=== PATIENT | female | born 1980 | race African-American/Black ===

== ENCOUNTER 2016-05-13 20:57 | Emergency (ER) | payer OTHER ==
[~2016-05-13] VITALS: Ht 154.9 cm; Wt 94.3 kg
--- NOTE | 2016-05-13 21:58 | PHYS DOC ---
Past Medical History Past Medical History: Other Past Surgical History: , Tubal ligation Alcohol Use: None Drug Use: None Adult General Chief Complaint Chief Complaint: LOWER EXT PAIN HPI HPI This 35-year-old female who states she's had some left-sided lower extremity pain in left lower quadrant pain as well as well as some left sided weakness that she status all been there for the last 2 days. Tonight she denies any significant history of health problems. 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 She does states she was recently traveling over the last several days. She denies any chest pain or shortness of breath. Review of Systems Review of Systems Constitutional: Denies fever or chills [] Eyes: Denies change in visual acuity, redness, or eye pain [] HENT: Denies nasal congestion or sore throat [] Respiratory: Denies cough or shortness of breath [] Cardiovascular: No additional information not addressed in HPI [] GI: Has abdominal pain, nausea, vomiting, bloody stools or diarrhea [] : Denies dysuria or hematuria [] Musculoskeletal: Denies back pain, has joint pain [] Integument: Denies rash or skin lesions [] Neurologic: Denies headache, focal weakness or sensory changes [] Endocrine: Denies polyuria or polydipsia [] Allergies Allergies Allergies Coded Allergies Type Severity Reaction Last Updated Verified Penicillins Allergy Unknown 05/13/16 Yes Physical Exam Physical Exam Constitutional: Well developed, well nourished, no acute distress, non-toxic appearance. [] HENT: Normocephalic, atraumatic, bilateral external ears normal, oropharynx moist, no oral exudates, nose normal. [] Eyes: PERRLA, EOMI, conjunctiva normal, no discharge. [] Neck: Normal range of motion, no tenderness, supple, no stridor. [] Cardiovascular:Heart rate regular rhythm, no murmur [] Lungs & Thorax: Bilateral breath sounds clear to auscultation [] Abdomen: Bowel sounds normal, soft, no tenderness, no masses, no pulsatile masses. [] Skin: Warm, dry, no erythema, no rash. [] Back: No tenderness, no CVA tenderness. [] Extremities: Tenderness to the left lower extremity in the gastrocnemius but no palpable deformity, no cyanosis, no clubbing, ROM intact, no edema. [] Neurologic: Alert and oriented X 3, normal motor function, normal sensory function, no focal deficits noted. [] Psychologic: Affect normal, judgement normal, mood normal. [] Current Patient Data Vital Signs Vital Signs Date Time Temp Pulse Resp B/P Pulse Ox O2 Delivery O2 Flow Rate FiO2 05/13/16 23:30 71 18 126/58 100 Room Air 05/13/16 21:31 98.2 98.2 Lab Values Laboratory Tests Test 05/13/16 21:21 05/13/16 23:00 Urine Collection Type Unknown Urine Color Yellow Urine Clarity Clear Urine pH 6.5 Urine Specific [place] 1.025 Urine Protein Negativemg/dL (NEG-TRACE) Urine Glucose (UA) Negativemg/dL (NEG) Urine Ketones (Stick) Negativemg/dL (NEG) Urine Blood Negative (NEG) Urine Nitrite Negative (NEG) Urine Bilirubin Negative (NEG) Urine Urobilinogen Dipstick 1.0mg/dL (0.2 mg/dL) Urine Leukocyte Esterase Negative (NEG) Urine RBC 0/HPF (0-2) Urine WBC Occ/HPF (0-4) Urine Squamous Epithelial Cells Many/LPF Urine Bacteria Few/HPF (0-FEW) Urine Mucus Marked/LPF Urine Test Negative (NEG) White Blood Count 8.4x10^3/uL (4.0-11.0) Red Blood Count 4.69x10^6/uL (3.50-5.40) Hemoglobin 12.3g/dL (12.0-15.5) Hematocrit 37.7% (36.0-47.0) Mean Corpuscular Volume 80fL (79-100) Mean Corpuscular Hemoglobin 26pg (25-35) Mean Corpuscular Hemoglobin Concent 33g/dL (31-37) Red Cell Distribution Width 14.7% (11.5-14.5) H Platelet Count 291x10^3/uL (140-400) Neutrophils (%) (Auto) 46% (31-73) Lymphocytes (%) (Auto) 45% (24-48) Monocytes (%) (Auto) 8% (0-9) Eosinophils (%) (Auto) 1% (0-3) Basophils (%) (Auto) 0% (0-3) Neutrophils # (Auto) 3.8x10^3uL (1.8-7.7) Lymphocytes # (Auto) 3.8x10^3/uL (1.0-4.8) Monocytes # (Auto) 0.6x10^3/uL (0.0-1.1) Eosinophils # (Auto) 0.1x10^3/uL (0.0-0.7) Basophils # (Auto) 0.0x10^3/uL (0.0-0.2) D-Dimer (Natasha) < 0.27ug/mlFEU (0.00-0.50) Sodium Level 140mmol/L (136-145) Potassium Level 3.7mmol/L (3.5-5.1) Chloride Level 103mmol/L (98-107) Carbon Dioxide Level 30mmol/L (21-32) Anion Gap 7 (6-14) Blood Urea Nitrogen 11mg/dL (7-20) Creatinine 0.7mg/dL (0.6-1.0) Estimated GFR (Cockcroft-Gault) 113.9 Glucose Level 91mg/dL (70-99) Calcium Level 9.0mg/dL (8.5-10.1) Laboratory Tests 05/13/16 23:00 Laboratory Tests 05/13/16 23:00 EKG EKG EKG as interpreted by me shows a sinus rhythm with rate of 91 bpm. There is no evidence of any ischemia on this EKG. Radiology/Procedures Radiology/Procedures CT Head without contrast demonstrates the following; No acute intracranial hemorrhage is identified. Solis-white differentiation of the major vascular territories is maintained. There is no intra-axial mass effect, midline shift, extra-axial fluid collection. No acute calvarial abnormality is identified. 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 Visualized paranasal sinuses and the mastoid air cells are aerated. One view of the chest as interpreted by me does not reveal any acute cardiopulmonary process A Venous Doppler of her left lower extremity is negative for any acute DVT Course & Med Decision Making Course & Med Decision Making Pertinent Labs and Imaging studies reviewed. (See chart for details) This 35-year-old female be discharged that she's had negative workup for DVT and a negative d-dimer as well area her chest film is negative. Blood work did not reveal any acute abnormality. Her head CT did not reveal any acute findings. The rest of her laboratory workup was negative. Dragon Disclaimer Dragon Disclaimer This electronic medical record was generated, in whole or in part, using a voice recognition dictation system. Departure Departure Impression: Primary Impression: Lower extremity pain, left Disposition: 01 HOME, SELF-CARE Condition: STABLE Referrals: NO PCP (PCP) Patient Instructions: Weakness, [id number] Additional Instructions: Please follow up with your primary doctor in the next 2-3 days. Return to the ER if you develop any worsening of your symptoms. EVE VASQUEZ DO May 13, 2016 21:58
[2016-05-13 22:26] LABS: BILIRUBIN,URINE NEGATIVE (NEG); GLUCOSE,URINE NEGATIVE (NEG); NITRITE,URINE NEGATIVE (NEG); PH,URINE 6.5; PROTEIN,URINE NEGATIVE (NEG-TRACE)
[2016-05-13 22:28] LABS: NEG OBC UR NEG; POS OBC UR POS
--- NOTE | 2016-05-13 22:28 | RAD ---
PROCEDURE CT head without contrast. HISTORY Weakness TECHNIQUE Noncontrast CT imaging was performed of the head. Exposure: One or more of the following individualized dose reduction techniques were utilized for this exam: 1. Automated exposure control. 2. Adjustment of the mA and/or kV according to patient size. 3. Use of iterative reconstruction technique. COMPARISON None FINDINGS No acute intracranial hemorrhage is identified. Solis-white differentiation of the major vascular territories is maintained. There is no intra-axial mass effect, midline shift, extra-axial fluid collection. No acute calvarial abnormality is identified. 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 Visualized paranasal sinuses and the mastoid air cells are aerated. IMPRESSION 1. No acute intracranial abnormality is identified. Electronically signed by: Hari Fischer MD (May 13, 2016 22:26:42)
[2016-05-13 22:35] LABS: BACTERIA,URINE FEW /HPF (0-FEW); RBC,URINE 0 /HPF (0-2); SQUAMOUS EPITHELIAL CELL,UR MANY /LPF; WBC,URINE OCC /HPF (0-4)
--- NOTE | 2016-05-13 23:04 | RAD ---
PROCEDURE Left lower extremity venous Doppler ultrasound HISTORY Left leg pain and tingling sensation since this a.m. TECHNIQUE Multiple grayscale, color, duplex spectral analysis waveform images were acquired of left lower extremity veins. COMPARISON None FINDINGS There is normal compression and color flow from the left common femoral to the popliteal veins, normal phasicity. There is normal color flow of the proximal left greater saphenous and profunda femoris veins. There is normal color flow of segments of left calf veins. IMPRESSION There is no evidence of deep venous thrombosis from the left common femoral to the popliteal veins. Electronically signed by: Hari Fischer MD (May 13, 2016 23:03:04)
[2016-05-13 23:07] LABS: BASO % 0 % (0-3); EOS % 1 % (0-3); HEMATOCRIT 37.7 % (36.0-47.0); HEMOGLOBIN 12.3 g/dL (12.0-15.5); LYMPH # 3.8 x10^3/uL (1.0-4.8); LYMPH % 45 % (24-48); MEAN CORPUSCULAR HEMOGLOBIN 26 pg (25-35); MEAN CORPUSCULAR HGB CONC 33 g/dL (31-37); MEAN CORPUSCULAR VOLUME 80 fL (79-100); MONO % 8 % (0-9); NEUT % 46 % (31-73); PLATELET COUNT 291 x10^3/uL (140-400); RED BLOOD COUNT 4.69 x10^6/uL (3.50-5.40); RED CELL DISTRIBUTION WIDTH 14.7 % (11.5-14.5); WHITE BLOOD COUNT 8.4 x10^3/uL (4.0-11.0)
[2016-05-13 23:26] LABS: CREATININE 0.7 mg/dL (0.6-1.0); GFR 113.9; POTASSIUM 3.7 mmol/L (3.5-5.1)
[2016-05-13 23:30] VITALS: BP 126/58
--- NOTE | 2016-05-14 08:06 | RAD ---
Exam: AP portable chest. History: Left-sided weakness. Comparison: None. Findings: The heart and mediastinal structures are within normal limits for size. Lungs are without infiltrate. No pneumothorax or pleural effusion is appreciated. Impression: 1. No acute cardiopulmonary process.
--- NOTE | 2016-05-14 11:39 | EKG ---
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
== END 2016-05-14 00:18 | disposition home or self-care (01) ==
LOC: ER 20:57
DX: M79.662 Pain in left lower leg (principal); R10.32 Left lower quadrant pain; R53.1 Weakness; Z86.718 Personal history of other venous thrombosis and embolism; Z98.51 Tubal ligation status; Z88.0 Allergy status to penicillin; Z79.01 Long term (current) use of anticoagulants
CPT/HCPCS: 36415; 70450; 71010; 80048; 81001; 81025; 85027; 85379; 93005; 93971; 99285-25